=== PATIENT | male | born 1955 | race Caucasian/White ===

== ENCOUNTER 2022-03-30 09:28 | Outpatient (CLI) | payer OTHER ==
[2022-03-30] MEDS ORDERED: HYDR-3972 PO (10:31)
[2022-03-30] MEDS ORDERED: LISI20TA28 PO (10:31)
[2022-03-30] MEDS ORDERED: ZOLP10TA PO (10:31)
[2022-03-30 10:50] LABS: BASOPHILS # (AUTO) 0.1 X10'3 (0-0.2); BASOPHILS % (AUTO) 1.2 % (0-1); EOSINOPHILS # (AUTO) 0.1 X10'3 (0-0.9); EOSINOPHILS % (AUTO) 2.4 % (0-6); LYMPHOCYTES # (AUTO) 2.4 X10'3 (1.1-4.8); LYMPHOCYTES % (AUTO) 43.2 % (21-51); MEAN CORPUSCULAR HEMOGLOBIN 29.3 PG (27.0-31.0); MEAN CORPUSCULAR HGB CONC 33.5 g/dL (33.0-36.5); MEAN CORPUSCULAR VOLUME 87.4 FL (78-98); MEAN PLATELET VOLUME 7.8 FL (7.4-10.4); MONOCYTES # (AUTO) 0.5 X10'3 (0-0.9); MONOCYTES % (AUTO) 9.1 % (2-12); NEUTROPHILS # (AUTO) 2.4 X10'3 (1.8-7.7); NEUTROPHILS % (AUTO) 44.1 % (42-75); PRE OP HEMATOCRIT 45.4 % (42.0-52.0); PRE OP HEMOGLOBIN 15.2 g/dL (14.0-17.9); PRE OP PLATELET COUNT 246 X10'3 (140-440); RED CELL DISTRIBUTION WIDTH 13.2 % (11.5-14.5)
[2022-03-30 10:59] LABS: ALBUMIN 3.7 G/DL (3.4-5.0); ALKALINE PHOSPHATASE 72 IU/L (46-116); BLOOD UREA NITROGEN 13 MG/DL (7-18); BUN/CREATININE RATIO 13.3 (5.4-32.0); CALCIUM 9.2 MG/DL (8.5-10.1); CHLORIDE 101 MMOL/L (99-107); CREATININE 0.98 MG/DL (0.60-1.10); PRE OP ALT 47 U/L (30-65); PRE OP ANION GAP 8 (8-16); PRE OP AST 26 U/L (10-37); PRE OP BILIRUB, TOTAL 0.3 MG/DL (0.0-1.0); PRE OP GLUCOSE 103 MG/DL (70-104); PRE OP SODIUM 136 MMOL/L (135-145); TOTAL CARBON DIOXIDE 27.2 MMOL/L (24-32); TOTAL PROTEIN 7.3 G/DL (6.4-8.2); eGFR 77 ML/MIN
== END 2022-03-30 23:59 | disposition home or self-care (01) ==
LOC: LAB 09:28 → EDSTATUS 04-05 12:15
PROVIDERS: ATTEND Orthopaedic Surgery
DX: Z01.812 Encounter for preprocedural laboratory examination (principal); M19.012 Primary osteoarthritis, left shoulder; M75.122 Complete rotator cuff tear or rupture of left shoulder, not specified as traumatic
CPT/HCPCS: 36415; 80053; 85025; 87081